=== PATIENT | male | born 1990 | race American Indian/Alaskan Native ===

== ENCOUNTER 2017-10-28 05:14 | Emergency (ER) | payer MEDICARE ==
[2017-10-28 08:12] LABS: Basophils % (Auto) 0.3 % (0.0-1.8); Eosinophils % (Auto) 0.2 % (0.0-4.3); Hematocrit 43.3 % (35.5-45.6); Hemoglobin 14.7 gm/dl (11.8-15.2); Mean Corpuscular HGB Conc 34 % (32-34); Mean Corpuscular Hemoglobin 29 pg (28-32); Mean Corpuscular Volume 87 fl (84-94); Platelet Count 193 K/mm3 (140-440); White Blood Count 6.8 K/mm3 (4.5-11.0)
[2017-10-28 08:22] LABS: Anion Gap 16 mmol/L; BUN/Creatinine Ratio 13; Blood Urea Nitrogen 9 mg/dL (9-20); Calcium 8.8 mg/dL (8.4-10.2); Carbon Dioxide 27 mmol/L (22-30); Chloride 99.3 mmol/L (98-107); Glucose 96 mg/dL (75-100); Sodium 138 mmol/L (137-145)
--- NOTE | 2017-10-28 10:20 | Emergency Department Report ---
ED Seizure HPI - General Chief Complaint: Seizure Stated Complaint: CONVULSIONS Time Seen by Provider: 10/28/17 10:18 Source: patient, EMS Mode of arrival: Ambulatory Limitations: No Limitations - History of Present Illness Initial Comments: Patient apparently went to his primary care clinic and with only a two-day and had his Dilantin amlodipine and hydrochlorothiazide renewed. He did not obtain his medicine and apparently had a generalized seizure today. He was transported via EMS. He denies any sort of injury. He has no complaints right now. He states that he is able to go home with assistance. He knows that he cannot drive until cleared. Does not report headache fever or any other complicating symptoms. He was noncompliant with his medicine. MD Complaint: seizure -: Sudden Description of Episode: tonic-clonic movement (I presumably do not have an EMS report) -: second(s) (appears to be shortened duration) Witnessed:: No Seizure History: known seizure disorder Place: home Possible Precipitating Event: none Associated Symptoms: denies other symptoms - Related Data Allergies Allergy/AdvReac Type Severity Reaction Status Date / Time No Known Allergies Allergy Verified 10/28/17 05:29 ED Review of Systems ROS: Stated complaint: CONVULSIONS Other details as noted in HPI Constitutional: denies: chills, fever Eyes: denies: eye pain, eye discharge, vision change ENT: denies: ear pain, throat pain Respiratory: denies: cough, shortness of breath, wheezing Cardiovascular: denies: chest pain, palpitations Endocrine: no symptoms reported Gastrointestinal: denies: abdominal pain, nausea, diarrhea Genitourinary: denies: urgency, dysuria Musculoskeletal: denies: back pain, joint swelling, arthralgia Skin: denies: rash, lesions Neurological: as per HPI. denies: headache, weakness, paresthesias Psychiatric: denies: anxiety, depression Hematological/Lymphatic: denies: easy bleeding, easy bruising ED Past Medical Hx - Past Medical History Previous Medical History?: Yes Hx Hypertension: Yes Hx Seizures: Yes Additional medical history: Overweight. Autistic and must be relatively mild patient is communicating reasonably normally - Surgical History Past Surgical History?: No - Social History Smoking Status: Never Smoker Substance Use Type: None ED Physical Exam - General Limitations: No Limitations General appearance: alert, in no apparent distress - Head Head exam: Present: atraumatic, normocephalic - Eye Eye exam: Present: normal appearance - ENT ENT exam: Present: mucous membranes moist, other (no significant oral trauma noted) - Neck Neck exam: Present: normal inspection. Absent: tenderness, meningismus - Respiratory Respiratory exam: Present: normal lung sounds bilaterally. Absent: respiratory distress - Cardiovascular Cardiovascular Exam: Present: regular rate, normal rhythm. Absent: systolic murmur, diastolic murmur, rubs, gallop - GI/Abdominal GI/Abdominal exam: Present: soft, normal bowel sounds. Absent: distended, tenderness, guarding, rebound, rigid - Rectal Rectal exam: Present: deferred - Extremities Exam Extremities exam: Present: normal inspection, full ROM. Absent: tenderness - Back Exam Back exam: Present: normal inspection - Neurological Exam Neurological exam: Present: alert, oriented X3, CN II-XII intact. Absent: motor sensory deficit - Psychiatric Psychiatric exam: Present: normal affect, normal mood - Skin Skin exam: Present: warm, dry, intact, normal color. Absent: rash ED Course Vital Signs 10/28/17 05:29 Temperature 98.2 F Pulse Rate 94 H Respiratory 20 Rate Blood Pressure 135/83 [Right] O2 Sat by Pulse 97 Oximetry - Reevaluation(s) Reevaluation #1: Patient was observed. He is given oral Dilantin. He will be discharged to responsible adult. He already has descriptions written by his primary care provider. 10/28/17 10:56 ED Medical Decision Making - Lab Data Result diagrams: 10/28/17 07:30 10/28/17 07:30 Laboratory Results - last 24 hr 10/28/17 10/28/17 07:30 07:30 WBC 6.8 RBC 5.00 Hgb 14.7 Hct 43.3 MCV 87 MCH 29 MCHC 34 RDW 13.0 L Plt Count 193 Lymph % (Auto) 23.3 [place] % (Auto) 7.9 H Eos % (Auto) 0.2 Baso % (Auto) 0.3 Lymph # 1.6 [place] # 0.5 Eos # 0.0 Baso # 0.0 Seg Neutrophils % 68.3 Seg Neutrophils # 4.6 Sodium 138 Potassium 4.0 Chloride 99.3 Carbon Dioxide 27 Anion Gap 16 BUN 9 Creatinine 0.7 L Estimated GFR > 60 BUN/Creatinine Ratio 13 Glucose 96 Calcium 8.8 Critical care attestation.: If time is entered above; I have spent that time in minutes in the direct care of this critically ill patient, excluding procedure time. ED Disposition Clinical Impression: Seizure, Seizure disorder Disposition: DC-01 TO HOME OR SELFCARE Is pt being admited?: No Does the pt Need Aspirin: No Condition: Stable Instructions: Epilepsy (ED), Recurrent Seizures Adult (ED) Additional Instructions: Do not drive until you are cleared by a physician and seizure free for the appropriate time frame. I have listed a neurologist that you may call for an appointment. Be sure to take her medicine. Referrals: SRIRAM BIRD MD [Primary Care Provider] - 3-5 Days АНДРЕЙ PACE MD [Staff Physician] - 3-5 Days Time of Disposition: 10:57
[2017-10-28] MEDS ORDERED: DILANTIN PO ONE (10:58)
[2017-10-28 13:57] VITALS: BP 158/72
== END 2017-10-28 13:30 | disposition home or self-care (01) ==
LOC: ED 05:14
DX: G40.909 Epilepsy, unspecified, not intractable, without status epilepticus (principal); I10 Essential (primary) hypertension
CPT/HCPCS: 36415; 80048; 80185; 85025; 99284; G0480; 80320

== ENCOUNTER 2017-11-01 22:04 | Emergency (ER) | payer MEDICARE ==
[2017-11-02 06:01] VITALS: BP 153/86
--- NOTE | 2017-11-02 08:07 | Cat Scan Report ---
CT HEAD WITHOUT CONTRAST: HISTORY: Seizure, head trauma. TECHNIQUE: Sequential 2.5mm CT images. COMPARISON: none. FINDINGS: Cerebral Parenchyma: Within normal limits. Cerebellum: Within normal limits. Brainstem: Within normal limits. Ventricles: Normal. Sella: Normal. Extra-axial spaces: Normal. Basal Cisterns: Normal. Intracranial Hemorrhage: None. Midline Shift: None. Calvarium: Normal. Sinuses: Normal. Mastoid Air Cells: Normal. Visualized Orbits: Normal. IMPRESSION: Cranial CT scan within normal limits.
[2017-11-02 08:32] LABS: Anion Gap 17 mmol/L; BUN/Creatinine Ratio 15; Blood Urea Nitrogen 9 mg/dL (9-20); Carbon Dioxide 26 mmol/L (22-30); Creatine Kinase 1613 units/L (55-170); Glucose 82 mg/dL (75-100); Potassium 4.4 mmol/L (3.6-5.0); Sodium 138 mmol/L (137-145)
[2017-11-02] MEDS ORDERED: NACL 0.9% 1000 ML 2,000 ML IV ONE (08:51)
--- NOTE | 2017-11-02 10:00 | Emergency Department Report ---
ED Seizure HPI - General Chief Complaint: Seizure Stated Complaint: SEIZURE Time Seen by Provider: 11/02/17 07:30 Source: patient, EMS (ems notes not available at time of chart dictation), RN notes reviewed, old records reviewed Mode of arrival: Ambulatory Limitations: No Limitations - History of Present Illness Initial Comments: This is a 27-year-old male with a history of seizure, patient reports taking phenytoin, recently ran out of his medications. Brought to the hospital by EMS for seizure. Prior to the seizure, patient denies headache, neck pain, chest pain, abdominal pain, shortness of breath, urinary symptoms. He has no complaints at this time, and wants to go home. He does think that he fell and hit his head today. MD Complaint: seizure -: Sudden Description of Episode: loss of consciousness -: second(s) Witnessed:: Yes Trauma: Yes Seizure History: known seizure disorder, history of non-compliance Place: other (patient reports that he was on a train) Associated Symptoms: denies other symptoms - Related Data Previous Rx's Medication Instructions Recorded Last Taken Type Hydrochlorothiazide [HCTZ] 12.5 mg PO QDAY #30 capsule 11/02/17 Unknown Rx Phenytoin Sodium Extended 300 mg PO QHS #90 capsule 11/02/17 Unknown Rx [Dilantin] amLODIPine [Norvasc] 10 mg PO DAILY #30 tablet 11/02/17 Unknown Rx Allergies Allergy/AdvReac Type Severity Reaction Status Date / Time No Known Allergies Allergy Verified 11/01/17 22:14 ED Review of Systems ROS: Stated complaint: SEIZURE Other details as noted in HPI Constitutional: denies: fever Eyes: denies: eye discharge ENT: denies: epistaxis Respiratory: denies: cough Cardiovascular: denies: chest pain Gastrointestinal: denies: abdominal pain Genitourinary: denies: dysuria Musculoskeletal: denies: back pain Neurological: denies: weakness, confusion Psychiatric: as per HPI ED Past Medical Hx - Past Medical History Previous Medical History?: Yes Hx Hypertension: Yes Hx Seizures: Yes Additional medical history: Overweight. Autistic and must be relatively mild patient is communicating reasonably normally - Social History Smoking Status: Never Smoker Substance Use Type: None - Medications Home Medications: Home Medications Medication Instructions Recorded Confirmed Last Taken Type Hydrochlorothiazide [HCTZ] 12.5 mg PO QDAY #30 capsule 12/18/17 Unknown Rx Phenytoin Sodium Extended 300 mg PO QHS #90 capsule 11/02/17 Unknown Rx [Dilantin] amLODIPine [Norvasc] 10 mg PO DAILY #30 tablet 11/02/17 Unknown Rx ED Physical Exam - General Limitations: No Limitations General appearance: alert, in no apparent distress - Head Head exam: Present: atraumatic, normocephalic - Eye Eye exam: Present: normal appearance, PERRL, EOMI, other (visual acuity intact to finger counting, color perception, reading at a close distance). Absent: nystagmus - ENT ENT exam: Present: normal exam, normal orophraynx, mucous membranes moist, normal external ear exam - Neck Neck exam: Present: normal inspection, full ROM - Respiratory Respiratory exam: Present: normal lung sounds bilaterally. Absent: respiratory distress, wheezes, rales, rhonchi, stridor, chest wall tenderness - Cardiovascular Cardiovascular Exam: Present: regular rate, normal rhythm, normal heart sounds. Absent: systolic murmur, diastolic murmur, rubs, gallop - GI/Abdominal GI/Abdominal exam: Present: soft, normal bowel sounds. Absent: distended, tenderness, guarding, rebound, rigid, pulsatile mass - Rectal Rectal exam: Present: deferred - Extremities Exam Extremities exam: Present: normal inspection, full ROM, normal capillary refill , other (the compartments are soft. There is no long bony tenderness. The pelvis is stable. 2+ pulses noted in the bilateral upper and lower extremities , there is no pain with passive range of motion on the bilateral upper or lower extremities.). Absent: pedal edema, joint swelling, calf tenderness - Back Exam Back exam: Present: normal inspection, full ROM. Absent: tenderness, CVA tenderness (R), paraspinal tenderness, vertebral tenderness - Neurological Exam Neurological exam: Present: alert, oriented X3, CN II-XII intact, normal gait, other (Extraocular movements intact. Tongue midline. No facial droop. Facial sensation intact to light touch in the V1, V2, V3 distribution bilaterally. 5 and 5 strength in 4 extremities.. Sensation is intact to light touch in 4 extremities.). Absent: motor sensory deficit - Psychiatric Psychiatric exam: Present: normal affect, normal mood - Skin Skin exam: Present: warm, dry, intact, normal color. Absent: rash ED Course Vital Signs 11/01/17 11/02/1711/02/17 22:14 06:00 07:35 Temperature 98.1 F 97.5 F L Pulse Rate 69 62 Respiratory 18 18 18 Rate Blood Pressure 143/102 153/86 O2 Sat by Pulse 99 100 100 Oximetry - Reevaluation(s) Reevaluation #1: 11/02/17 12:21 The patient has been in the emergency room for hours without any seizure-like activity. His phenytoin level comes back subtherapeutic. He is given a single dose of 600 mg. He will be discharged with his antiepileptic drug medications. Patient declined IV, and has been tolerating oral feeds. Patient will be discharged at this time. Of note, there was a delay in disposition because it took a very long time for the laboratory to results the patient's phenytoin level. ED Medical Decision Making - Lab Data Result diagrams: 11/02/17 07:59 Vital Signs 11/01/17 11/02/17 11/02/17 22:14 06:00 07:35 Temperature 98.1 F 97.5 F L Pulse Rate 69 62 Respiratory 18 18 18 Rate Blood Pressure 143/102 153/86 O2 Sat by Pulse 99 100 100 Oximetry Lab Results 11/02/17 Range/Units 07:59 Sodium 138 (137-145) mmol/L Potassium 4.4 (3.6-5.0) mmol/L Chloride 99.0 (98-107) mmol/L Carbon Dioxide 26 (22-30) mmol/L Anion Gap 17 mmol/L BUN 9 (9-20) mg/dL Creatinine 0.6 L (0.8-1.5) mg/dL Estimated GFR > 60 ml/min BUN/Creatinine Ratio 15 % Glucose 82 (75-100) mg/dL Calcium 9.0 (8.4-10.2) mg/dL Total Creatine Kinase 1613 H (55-170) units/L - Radiology Data Radiology results: report reviewed, image reviewed Noncontrast CT scan of the brain is negative for acute disease - Medical Decision Making Differential diagnosis, including not limited to: Breakthrough seizure, medication noncompliance, intracranial injury, myositis Assessment and plan: 27-year-old male with a recent hospital evaluation for breakthrough seizure, patient was not discharged with antiepileptic drug medications. A few days ago, laboratory studies indicated subtherapeutic Dilantin level. Patient is afebrile, with reassuring vital signs, walks with a steady gait and is clinically sober. He declined an IV for IV fluids, and indicated that he would drink a lot of fluids at home. I specifically advised the patient that not drinking a lot of fluids could result in kidney injury, and he verbalized understanding. The patient is autistic, but he is able to articulate things in his own words, and was specifically able to tell me that he did understand that failure to consume adequate fluids at home could result in renal insufficiency. Patient observed in the ER without recurrent convulsive events for a few hours, there has been a delay in disposition because the lab is taking a long time to result his phenytoin level. Critical care attestation.: If time is entered above; I have spent that time in minutes in the direct care of this critically ill patient, excluding procedure time. ED Disposition Clinical Impression: History of seizure Disposition: DC-01 TO HOME OR SELFCARE Is pt being admited?: No Does the pt Need Aspirin: No Condition: Stable Additional Instructions: Continue outpatient seizure medications. Drink 6-8 cups of water a day for the next week. Not drinking enough water And resultant kidney damage, kidney failure, which can ultimately result in need for dialysis. Do not drive a car or operate motor vehicles for the next 6 months. Follow up with a primary care doctor or neurologist within the next 7-10 days. Return to the ER right away with fevers, chills, lethargy, irritability, projectile vomiting, change in mental status, confusion, inability to tolerate liquid feeds. Prescriptions: Phenytoin Sodium Extended [Dilantin] 300 mg PO QHS #90 capsule amLODIPine [Norvasc] 10 mg PO DAILY #30 tablet Hydrochlorothiazide [HCTZ] 12.5 mg PO QDAY #30 capsule Referrals: SRIRAM BIRD MD [Primary Care Provider] - 3-5 Days YONAS BURDEN MD [Referring] - 3-5 Days JAMIE ABEL MD [Staff Physician] - 3-5 Days
[2017-11-02] MEDS ORDERED: DILANTIN PO ONE (12:20)
== END 2017-11-02 13:00 | disposition home or self-care (01) ==
LOC: ED 22:04
DX: G40.909 Epilepsy, unspecified, not intractable, without status epilepticus (principal); I10 Essential (primary) hypertension
CPT/HCPCS: 36415; 70450; 80048; 80185; 82550; 99284

== ENCOUNTER 2017-12-05 01:47 | Emergency (ER) | payer MEDICARE ==
[2017-12-05 03:40] LABS: Basophils % (Auto) 0.3 % (0.0-1.8); Eosinophils % (Auto) 0.5 % (0.0-4.3); Hematocrit 45.5 % (35.5-45.6); Hemoglobin 15.2 gm/dl (11.8-15.2); Lymphocytes # (Auto) 2.7 K/mm3 (1.2-5.4); Lymphocytes % (Auto) 42.3 % (13.4-35.0); Mean Corpuscular HGB Conc 33 % (32-34); Mean Corpuscular Hemoglobin 29 pg (28-32); Mean Corpuscular Volume 87 fl (84-94); Monocytes # (Auto) 0.6 K/mm3 (0.0-0.8); Monocytes % (Auto) 8.8 % (0.0-7.3); Platelet Count 230 K/mm3 (140-440); Red Blood Count 5.25 M/mm3 (3.65-5.03); Red Cell Distribution Width 13.3 % (13.2-15.2)
[2017-12-05 04:37] LABS: BUN/Creatinine Ratio 11; Blood Urea Nitrogen 8 mg/dL (9-20); Hemolysis Index 8
[2017-12-05] MEDS ORDERED: DILANTIN 1,000 MG in NACL 0.9% 250ML 250 ML IV ONE (10:56)
[2017-12-05] MEDS ORDERED: K-DUR PO ONE (10:56)
--- NOTE | 2017-12-05 11:21 | Emergency Department Report ---
ED Seizure HPI - General Chief Complaint: Seizure Stated Complaint: SEIZURE Time Seen by Provider: 12/05/17 10:56 Source: patient Mode of arrival: Stretcher Limitations: No Limitations - History of Present Illness Initial Comments: 27-year-old male with a past medical history of hypertension, autism, seizures presents to the hospital status post seizure. He states "I had a seizure after 1 hour while on the train tonight". Patient has been on his Dilantin times one month. He denies any pain, tongue laceration, or urinary incontinence at this time. - Related Data Previous Rx's Medication Instructions Recorded Last Taken Type Hydrochlorothiazide [HCTZ] 12.5 mg PO QDAY #30 capsule 11/02/17 Unknown Rx amLODIPine [Norvasc] 10 mg PO DAILY #30 tablet 11/02/17 Unknown Rx Phenytoin Sodium Extended 300 mg PO QHS 30 Days capsule 12/05/17 Unknown Rx [Dilantin] Allergies Allergy/AdvReac Type Severity Reaction Status Date / Time No Known Allergies Allergy Verified 11/01/17 22:14 ED Review of Systems ROS: Stated complaint: SEIZURE Other details as noted in HPI Comment: All other systems reviewed and negative Other: Constitutional: No fevers chills Eyes: No eye pain visual changes or discharge ENT: No ear pain or throat pain Neck: Denies pain Respiratory: Denies cough wheezing shortness of breath Cardiovascular: Denies chest pain, palpitations, syncope GI: Denies abdominal pain, nausea, vomiting, diarrhea : Denies dysuria Musculoskeletal: Denies back pain Skin: Denies rash, lesions, erythema Neurologic: Denies headache, numbness, weakness Psychiatric: Denies suicidal ideation, hallucinations ED Past Medical Hx - Past Medical History Hx Hypertension: Yes Hx Seizures: Yes Additional medical history: Overweight. Autistic and must be relatively mild patient is communicating reasonably normally - Surgical History Past Surgical History?: No - Social History Smoking Status: Never Smoker Substance Use Type: None - Medications Home Medications: Home Medications Medication Instructions Recorded Confirmed Last Taken Type Hydrochlorothiazide [HCTZ] 12.5 mg PO QDAY #30 capsule 11/02/17 Unknown Rx amLODIPine [Norvasc] 10 mg PO DAILY #30 tablet 11/02/17 Unknown Rx Phenytoin Sodium Extended 300 mg PO QHS 30 Days capsule 12/05/17 Unknown Rx [Dilantin] ED Physical Exam - General Limitations: No Limitations - Other Other exam information: General: No limitations, patient is alert in no acute distress Head exam: Atraumatic, normocephalic Eyes exam: Normal appearance ENT: Moist mucous membrane, normal oropharynx Neck exam: Normal inspection, full range of motion, no meningismus nontender Respiratory exam: Clear to auscultation bilateral, no wheezes, rales, crackles Cardiovascular: Normal rate and rhythm, normal heart sounds Abdomen: Soft, nondistended, and nontender, with normal bowel sounds, no rebound, or guarding Extremity: Full range of motion normal inspection no deformity Back: Normal Inspection, full range of motion, no tenderness Neurologic: Alert, oriented x3, cranial nerves intact, no motor or sensory deficit Psychiatric: normal affect, normal mood Skin: Warm, dry, intact ED Course Vital Signs 12/05/17 02:25 Temperature 98.1 F Pulse Rate 86 Respiratory 18 Rate Blood Pressure 124/88 [Left] O2 Sat by Pulse 98 Oximetry ED Medical Decision Making - Lab Data Result diagrams: 12/05/17 03:07 12/05/17 03:07 Lab Results 12/05/17 12/05/17 12/05/17 Range/Units 03:07 03:07 03:07 WBC 6.5 (4.5-11.0) K/mm3 RBC 5.25 H (3.65-5.03) M/mm3 Hgb 15.2 (11.8-15.2) gm/dl Hct 45.5 (35.5-45.6) % MCV 87 (84-94) fl MCH 29 (28-32) pg MCHC 33 (32-34) % RDW 13.3 (13.2-15.2) % Plt Count 230 (140-440) K/mm3 Lymph % (Auto) 42.3 H (13.4-35.0) % [place] % (Auto) 8.8 H (0.0-7.3) % Eos % (Auto) 0.5 (0.0-4.3) % Baso % (Auto) 0.3 (0.0-1.8) % Lymph # 2.7 (1.2-5.4) K/mm3 [place] # 0.6 (0.0-0.8) K/mm3 Eos # 0.0 (0.0-0.4) K/mm3 Baso # 0.0 (0.0-0.1) K/mm3 Seg Neutrophils % 48.1 (40.0-70.0) % Seg Neutrophils # 3.1 (1.8-7.7) K/mm3 Sodium 143 (137-145) mmol/L Potassium 3.5 L (3.6-5.0) mmol/L Chloride 101.2 (98-107) mmol/L Carbon Dioxide 27 (22-30) mmol/L Anion Gap 18 mmol/L BUN 8 L (9-20) mg/dL Creatinine 0.7 L (0.8-1.5) mg/dL Estimated GFR > 60 ml/min BUN/Creatinine Ratio 11 % Glucose 104 H (75-100) mg/dL Calcium 9.0 (8.4-10.2) mg/dL Phenytoin 4.4 L (10.0-20.0) ug/mL - Medical Decision Making Breakthrough seizure Secondary to medication noncompliance Subtherapeutic Dilantin level noted Patient loaded with Dilantin 1 g By mouth potassium 40 mg given for mild hypokalemia Patient be discharged home Refill of meds will be provided Outpatient follow-up will be encouraged - Differential Diagnosis seizure, medication noncompliance, electrolyte abnormality Critical Care Time: No Critical care attestation.: If time is entered above; I have spent that time in minutes in the direct care of this critically ill patient, excluding procedure time. ED Disposition Clinical Impression: Seizure, Noncompliance with medication regimen, Hypokalemia Disposition: DC-01 TO HOME OR SELFCARE Is pt being admited?: No Does the pt Need Aspirin: No Condition: Stable Instructions: Epilepsy (ED) Additional Instructions: Take the medication as prescribed. Return is symptoms worsen. Follow with your doctor for further treatment. Prescriptions: Phenytoin Sodium Extended [Dilantin] 300 mg PO QHS 30 Days capsule Referrals: PRIMARY CARE, [Primary Care Provider] - 3-5 Days Time of Disposition: 13:02
[2017-12-05 15:02] VITALS: BP 126/72
== END 2017-12-05 13:34 | disposition home or self-care (01) ==
LOC: ED 01:47
DX: R56.9 Unspecified convulsions (principal); I10 Essential (primary) hypertension; F84.0 Autistic disorder; E87.6 Hypokalemia
CPT/HCPCS: 36415; 80048; 80185; 85025; 99284; J1165; J7050